=== PATIENT | female | born 1960 | race Caucasian/White ===

== ENCOUNTER 2016-07-21 10:55 | Emergency (ER) | payer OTHER ==
[2016-07-21] MEDS ORDERED: ASPIRIN 81 MG CHEW TAB ONE (11:19)
== END 2016-07-21 15:50 | disposition home or self-care (01) ==
LOC: ER 10:55
DX: R07.2 Precordial pain (principal)
CPT/HCPCS: 36415; 71010; 80053; 82550; 83735; 84484; 85025; 85610; 85730; 93005